=== PATIENT | male | born 1990 | race Caucasian/White ===

== ENCOUNTER 2019-09-01 09:50 | Emergency (ER) | payer MEDICAID ==
[~2019-09-01] VITALS: Ht 175.3 cm; Wt 76.7 kg
[~2019-09-01 09:50] MED LIST: OMEPRAZOLE DR20 M1 PO; PROVENTIL0.09 MG/A1 PO
[2019-09-01 09:58] VITALS: Ht 175.3 cm; Wt 76.7 kg
[2019-09-01 11:53] VITALS: BP 126/78
== END 2019-09-01 11:53 | disposition home or self-care (01) ==
LOC: ED 09:50
DX: J45.901 Unspecified asthma with (acute) exacerbation (principal); K21.9 Gastro-esophageal reflux disease without esophagitis; F17.210 Nicotine dependence, cigarettes, uncomplicated
CPT/HCPCS: 99406; J7512; J7613; J7644

== ENCOUNTER 2020-03-13 22:25 | Emergency (ER) | payer SELFPAY ==
[~2020-03-13] VITALS: Ht 175.3 cm; Wt 81.2 kg
[2020-03-13 22:26] VITALS: Ht 175.3 cm; Wt 81.2 kg
[2020-03-14 02:40] VITALS: BP 135/70
== END 2020-03-14 02:40 | disposition home or self-care (01) ==
LOC: ED 22:25
DX: J45.901 Unspecified asthma with (acute) exacerbation (principal); K21.9 Gastro-esophageal reflux disease without esophagitis
CPT/HCPCS: J7613